=== PATIENT | female | born 1955 | race Caucasian/White ===

== ENCOUNTER 2021-05-12 07:15 | Outpatient (CLI) | payer MEDICARE ==
[2021-05-12 15:17] LABS: BUN - BLOOD UREA NITROGEN 11 mg/dL (6-20); CALCIUM 9.2 mg/dL (8.5-10.3); CARBON DIOXIDE - CO2 26 mmol/L (21-32); CHLORIDE 98 mmol/L (101-111); CHOLESTEROL 209 mg/dL; CREATININE 0.5 mg/dL (0.4-1.0); GFR - MDRD 123 (>89); GLUCOSE 99 mg/dL (70-100); HDL CHOLESTEROL 103 mg/dL; LDL CHOLESTEROL,CALCULATED 89 mg/dL; LDL/HDL RATIO 0.9 (<4.4); SODIUM 134 mmol/L (135-145); TRIGLYCERIDES 85 mg/dL; VLDL CHOLESTEROL 17 mg/dL
== END 2021-05-12 07:16 | disposition home or self-care (01) ==
LOC: LAB.S 07:15
PROVIDERS: ATTEND Internal Medicine
DX: N95.1 Menopausal and female climacteric states (principal); E78.5 Hyperlipidemia, unspecified; I10 Essential (primary) hypertension; M81.0 Age-related osteoporosis without current pathological fracture; M25.511 Pain in right shoulder
CPT/HCPCS: 36415; 80048; 80061; 83721

== ENCOUNTER 2021-07-12 09:47 | Outpatient (CLI) | payer MEDICARE ==
--- NOTE | 2021-07-19 08:19 | Mammography Report ---
BILATERAL DIGITAL SCREENING MAMMOGRAM 3D/2D: 07/12/2021 CLINICAL: Routine screening. No prior exams were available for comparison. The tissue of both breasts is heterogeneously dense. T his may lower the sensitivity of mammography. No significant masses, calcifications, or other findings are seen in either breast. IMPRESSION: NEGATIVE There is no mammographic evidence of malignancy. A 1 year screening mammogram is recommended. This exam was interpreted at Station ID: [id number]. NOTE: For mammograms, a report in lay terms will be sent to the patient. Approximately 15% of breast malignancies will not be visualized mammographically. In the management of a palpable breast mass, a negative mammogram must not discourage biopsy of a clinically suspicious lesion. Electronically Signed By: David Bolton M.D. [email or web address]/[email or web address]:07/18/2021 12:11:41 ACR BI-RADS Category 1: Negative 3341F PARENCHYMAL PATTERN: (D) - The breast(s) demonstrate(s) heterogeneously dense fibroglandular paryony ma. BI-RADS CATEGORY: (1) - 1 RECOMMENDATION: (ANNUAL) - Recommend routine annual screening mammography. [id number] 1 year screening LATERALITY: (B)
== END 2021-07-12 09:48 | disposition home or self-care (01) ==
LOC: DI.S 09:47
PROVIDERS: ATTEND Internal Medicine
DX: Z12.31 Encounter for screening mammogram for malignant neoplasm of breast (principal)

== ENCOUNTER 2021-10-11 09:30 | Outpatient (CLI) | payer MEDICARE | END 2021-10-11 23:59 | disposition home or self-care (01) | LOC: LAB.S 09:30 | PROVIDERS: ATTEND Nurse Practitioner | DX: L03.019 Cellulitis of unspecified finger (principal) | CPT/HCPCS: 87070; 87181; 87205 ==

== ENCOUNTER 2021-10-31 08:00 | Outpatient (CLI) | payer MEDICARE | END 2021-10-31 23:59 | LOC: LAB.S 08:00 | PROVIDERS: ATTEND Physician Assistant | DX: Z20.818 Contact with and (suspected) exposure to other bacterial communicable diseases (principal); Z20.822 Contact with and (suspected) exposure to COVID-19 | CPT/HCPCS: 87070; U0004 ==

== ENCOUNTER 2022-07-22 08:00 | Outpatient (CLI) | payer MEDICARE ==
--- NOTE | 2022-07-22 10:23 | XRAY Report ---
PROCEDURE: Toe(s) RT INDICATIONS: RIGHT TOE INJURY/SPRAIN TECHNIQUE: 3 views of the right toe(s) acquired. COMPARISON: None FINDINGS: Bones: There is a mildly displaced fracture seen involving the shaft of the proximal phalanx of the second toe. No definite intra-articular involvement is seen. No additional fractures or dislocations. No suspicious bony lesions. Degenerative changes are seen throughout, which are worst involving the first ray. There is an access ory ossicle seen, an os tibiale externum. Soft tissues: No suspicious soft tissue densities. IMPRESSION: Second toe fracture. Reviewed by: Bonifacio Hewitt MD on 07/22/2022 9:[address] [facility] Approved by: Bonifacio Hewitt MD on 07/22/2022 9:[address] [facility] Station ID: [id number]
== END 2022-07-22 08:01 | disposition home or self-care (01) ==
LOC: DI.S 08:00
PROVIDERS: ATTEND Emergency Medicine
DX: S92.511A Displaced fracture of proximal phalanx of right lesser toe(s), initial encounter for closed fracture (principal)

== ENCOUNTER 2023-06-11 08:00 | Outpatient (CLI) | payer MEDICARE ==
--- NOTE | 2023-06-11 13:41 | XRAY Report ---
PROCEDURE: Foot 3 View RT INDICATIONS: SPRAIN OF RIGHT FOOT TECHNIQUE: 3 views of the foot were acquired. COMPARISON: None. FINDINGS: Bones: No fractures or dislocations. No suspicious bony lesions. Mild to moderate first MTP degen erative arthritis. Soft tissues: No suspicious soft tissue calcifications or masses. IMPRESSION: No acute bony abnormality. If pain persists with conservative management, consider repeat radiographs in 10-14 days or cross-sectional imaging. First MTP degenerative arthritis. Reviewed by: Bay Castrejon MD on 06/11/2023 1:40 PM PDT Approved by: Bay Castrejon MD on 06/11/2023 1:40 PM PDT Station ID: [id number]
== END 2023-06-11 23:59 | disposition home or self-care (01) ==
LOC: DI.S 08:00
PROVIDERS: ATTEND Physician Assistant
DX: S93.691A Other sprain of right foot, initial encounter (principal); M19.071 Primary osteoarthritis, right ankle and foot

== ENCOUNTER 2023-07-18 10:43 | Outpatient (CLI) | payer MEDICARE ==
--- NOTE | 2023-07-18 15:11 | DEXA Report ---
PROCEDURE: Dexa Spine and/or Hip INDICATIONS: OSTEOPOROSIS TECHNIQUE: Dual energy x-ray absorptiometry (DXA) was performed on a SADAR 3D System. Regions measur ed are the AP Spine, femoral neck, and if needed forearm. COMPARISON: None FINDINGS: Lumbar Spine: Bone Mineral Density 0.917 g/cm/cm,T score -2.2. Osteopenia Left Femoral Neck: Bone Mineral Density 0.800 g/cm/cm, T score -1.7, osteopenia. Left Hip: Bone Mineral Density 0.850 g/cm/cm,T score -1.2. Osteopenia (T score greater or equal to -1.0: NORMAL) (T score from -1.1 to -2.4: OSTEOPENIA) (T score less than or equal to -2.5 to: OSTEOPOROSIS) Impression: By WHO criteria, this patient has low bone density (osteopenia). Patients with diagnosis of osteoporosis or osteopenia should have regular bone mineral density assess ment. For those eligible for Medicare, routine testing is allowed once every 2 years. Testing frequ ency can be increased for patients who have rapidly progressing disease or for those who are receivin g medical therapy to restore bone mass. Reviewed by: Usha Lugo MD on 07/18/2023 3:09 PM PST Approved by: Usha Lugo MD on 07/18/2023 3:09 PM PST Station ID: [id number]
== END 2023-07-18 10:44 | disposition home or self-care (01) ==
LOC: DI 10:43
PROVIDERS: ATTEND Family Medicine
DX: M85.89 Other specified disorders of bone density and structure, multiple sites (principal)

== ENCOUNTER 2023-07-18 10:45 | Outpatient (CLI) | payer MEDICARE ==
--- NOTE | 2023-07-19 10:58 | Mammography Report ---
BILATERAL DIGITAL SCREENING MAMMOGRAM 3D/2D: 07/18/2023 CLINICAL: Routine screening. Comparison is made to exams dated: 07/12/2021 mammogram - [facility], 08/04/2019 m ammogram, 07/31/2018 mammogram, 01/03/2018 mammogram, 07/05/2017 mammogram, and 06/18/2017 mammogram - [facility]. Both breasts are heterogeneously dense, which may obscure small masses (category c / 51-75% glandular tissue). No significant masses, calcifications, or other findings are seen in either breast. IMPRESSION: NEGATIVE There is no mammographic evidence of malignancy. A 1 year screening mammogram is recommended. Based on the Tyrer Cuzick model (a risk assessment model) the patients lifetime risk is 8.4% and her 10 year risk is 5.3%. According to the ACR, ACS, and NCCN guidelines, an annual breast MRI exam precious g with mammogram is recommended if the patients lifetime risk is 20% or greater. This exam was interpreted at Station ID: [id number]. NOTE: For mammograms, a report in lay terms will be sent to the patient. Approximately 15% of breast malignancies will not be visualized mammographically. In the management of a palpable breast mass, a negative mammogram must not discourage biopsy of a clinically suspicious lesion. Electronically Signed By: Shalonda Paredes M.D., PH.D eb/cesarrad:07/18/2023 17:25:22 letter sent: No_Letter ACR BI-RADS Category 1: Negative 3341F PARENCHYMAL PATTERN: (D) - The breast(s) demonstrate(s) heterogeneously dense fibroglandular cody olvera. BI-RADS CATEGORY: (1) - 1 Mammogram [id number] 1 year screening LATERALITY: (B)
== END 2023-07-18 10:46 | disposition home or self-care (01) ==
LOC: DI 10:45
PROVIDERS: ATTEND Family Medicine
DX: Z12.31 Encounter for screening mammogram for malignant neoplasm of breast (principal); R92.333 Mammographic heterogeneous density, bilateral breasts

== ENCOUNTER 2023-12-22 11:59 | Emergency (ER) | payer MEDICARE ==
[2023-12-22 12:20] VITALS: BP 157/83; O2SAT 96
--- NOTE | 2023-12-22 12:43 | ED Physician Documentation ---
PD HPI HEENT - Stated complaint Stated Complaint: TOOTH PX/SWELLING, CID - Chief complaint Chief Complaint: Heent - History obtained from History obtained from: Patient, Family - History of Present Illness Timing - onset: How many days ago (3) Timing - duration: Days (3) Timing - details: Gradual onset, Still present in ED Location: Tooth Improves: Medication Associated symptoms: Congestion, Headache Similar symptoms before: Diagnosis (dental abscess) Recently seen: Surgery - Additional information Additional information: Lisa Martínez has had a recent dental infection and she has been on some amoxicillin which appeared to help she has had a molar removed and a bone graft done and she has been placed back onto amoxicillin. She is had some improvement discontinue the use of the amoxicillin and she has been back on the amoxicillin for several days without improvement in her pain. She is having some pain in her shoulder as well and has not been sleeping well her feels that she is a bit confused. Review of Systems Constitutional: reports: Sweats. denies: Fever Eyes: denies: Decreased vision Ears: denies: Ear pain Nose: reports: Congestion Throat: reports: Dental pain / toothache Cardiac: denies: Chest pain / pressure, Palpitations Respiratory: denies: Dyspnea, Cough GI: denies: Nausea, Vomiting, Constipation, Diarrhea PD PAST MEDICAL HISTORY - Past Medical History Past Medical History: No Cardiovascular: Hypertension, High cholesterol - Present Medications Home Medications: Ambulatory Orders Medication Instructions Recorded Confirmed Clindamycin [Cleocin] 300 mg PO Q6H 7 Days #28 cap 12/22/23 Ondansetron Odt [Zofran] 4 mg TL Q6H PRN #10 tablet 12/22/23 traMADol [Ultram] 50 - 100 mg PO Q6H PRN #20 tablet 12/22/23 - Allergies Allergies/Adverse Reactions: Allergies Allergy/AdvReac Type Severity Reaction Status Date / Time No Known Drug Allergies Allergy Verified 12/22/23 12:10 - Social History Does the pt smoke?: No Smoking Status: Never smoker Does the pt drink ETOH?: No Does the pt have substance abuse?: No - Immunizations Immunizations are current?: Yes PD ED PE NORMAL - Vitals Vital signs reviewed: Yes (Hypertensive) - General General: Alert and oriented X 3, No acute distress, Well developed/nourished - HEENT HEENT: Atraumatic, PERRL, EOMI, Other (There is a molar on the right lower that is missing and the overlying tissue is tender it appears well-healed. There is no other specific tenderness to the gingival or buccal mucosa on the upper and lower bilaterally. The patient is complaining of pain in those areas.) - Neck Neck: Supple, no meningeal sign, No bony TTP - Cardiac Cardiac: RRR, No murmur - Respiratory Respiratory: No respiratory distress, Clear bilaterally - Derm Derm: Normal color, Warm and dry, No rash - Extremities Extremities: No deformity, No edema - Neuro Neuro: Alert and oriented X 3, environmental protection geologist 2-12 intact, No motor deficit, No sensory deficit, Normal speech Eye Opening: Spontaneous Motor: Obeys Commands Verbal: Oriented GCS Score: 15 - Psych Psych: Normal mood, Normal affect Results - Vitals Vitals: Vital Signs - 24 hr 12/22/23 12:10 Temperature 36.8 C Heart Rate 88 Respiratory 16 Rate Blood Pressure 157/83 H O2 Saturation 96 Oxygen O2 Source Room air PD Medical Decision Making - ED course Complexity details: considered differential, d/w patient, d/w family ED course: 68-year-old female 10 days s/p tooth extraction has persistence of pain has not been sleeping. She and her are hoping to switch antibiotic which seems reasonable. I also offered additional pain management and the patient indicates to me that she has been taking Naprosyn and ibuprofen without relief. I encouraged the patient to discontinue the use of the additional ibuprofen and to instead use acetaminophen. I having her urged her to use the tramadol as needed for pain not relieved by addition of Tylenol. She has had prior problems with vomiting associated with narcotic pain reliever. She has had some nausea and today we are prescribing both Zofran, clindamycin and tramadol. Departure - Departure Disposition: 01 Home, Self Care Clinical Impression: Pain, dental Condition: Stable Instructions: ED Tooth Pain Follow-Up: RASHMI BENAVIDEZ MD [Physician No Access] - Prescriptions: Clindamycin [Cleocin] 300 mg PO Q6H 7 Days #28 cap traMADol [Ultram] 50 - 100 mg PO Q6H PRN #20 tablet PRN Reason: Pain Ondansetron Odt [Zofran] 4 mg TL Q6H PRN #10 tablet PRN Reason: Nausea / Vomiting Comments: Lisa, today it looks like you have significant dental pain after a dental procedure and we are going to switch your antibiotic from amoxicillin to clindamycin. I will also provide some medication for nausea. For pain my suggestion is to take the Naprosyn as you have been and avoid any additional anti-inflammatory like Advil. Addition of acetaminophen to your pain regimen will be helpful. In addition I have E scribed some tramadol to [facility] [place]. Our expectations with treatment are improvement in your symptoms day by day. If you are not improved or you are worse by tomorrow a repeat visit is indicated. Forms: PCP List Discharge Date/Time: 12/22/23 12:51
== END 2023-12-22 12:51 | disposition home or self-care (01) ==
LOC: ED 11:59
DX: K08.89 Other specified disorders of teeth and supporting structures (principal); R11.0 Nausea
CPT/HCPCS: 99283

== ENCOUNTER 2023-12-22 15:47 | Outpatient (CLI) | payer MEDICARE | END 2023-12-22 23:59 | disposition critical access hospital (66) | LOC: EMS 15:47 | DX: R47.89 Other speech disturbances (principal); R53.1 Weakness; R53.81 Other malaise | CPT/HCPCS: A0425; A0429 ==

== ENCOUNTER 2023-12-22 16:24 | Emergency (ER) | payer MEDICARE ==
--- NOTE | 2023-12-22 16:50 | ED Physician Documentation ---
PD HPI FOCAL NEURO - Stated complaint Stated Complaint: SPEECH ISSUES - Chief complaint Chief Complaint: Neuro - History obtained from History obtained from: Patient, EMS - Additional information Additional information: She has a history of hypertension and presents for evaluation of strokelike symptoms. Time of onset is unclear. The says he noted it potentially sometime overnight last night. It was really more notable this morning at 9 AM. She has some word finding difficulties and difficulties finishing her sentence. There is a's headache associated with it. Of note she also saw my partner earlier in the day for a dental infection. I queried if the new symptomatology might be due to related to the tramadol but they have not taken any yet. PD PAST MEDICAL HISTORY - Past Medical History Cardiovascular: Hypertension, High cholesterol - Past Surgical History Past Surgical History: Yes Ortho: Shoulder arthroplasty, Arthroscopic surgery - Present Medications Home Medications: Ambulatory Orders Medication Instructions Recorded Confirmed Alendronate [Fosamax] 70 mg PO OAW 12/22/23 12/22/23 Clindamycin [Cleocin] 300 mg PO Q6H 7 Days #28 cap 12/22/23 12/22/23 Gabapentin [Neurontin] 1 cap PO TID 12/22/23 12/22/23 Lisinopril [Zestril] 10 mg PO DAILY 12/22/23 12/22/23 Metoclopramide [Reglan] 10 mg PO Q6H PRN #20 tablet 12/22/23 Ondansetron Odt [Zofran] 4 mg TL Q6H PRN #10 tablet 12/22/23 12/22/23 Simvastatin [Zocor] 40 mg PO QPM 12/22/23 12/22/23 Sodium Chloride [Salt Tab] 1 gm PO DAILY #7 tablet 12/22/23 traMADol [Ultram] 50 - 100 mg PO Q6H PRN #20 tablet 12/22/23 12/22/23 - Allergies Allergies/Adverse Reactions: Allergies Allergy/AdvReac Type Severity Reaction Status Date / Time No Known Drug Allergies Allergy Verified 12/22/23 12:10 - Social History Does the pt smoke?: No Smoking Status: Never smoker Does the pt drink ETOH?: No Does the pt have substance abuse?: No - Immunizations Immunizations are current?: Yes PD ED PE NORMAL - Vitals Vital signs reviewed: Yes - General General: Alert and oriented X 3, No acute distress - HEENT HEENT: PERRL, EOMI - Neck Neck: Supple, no meningeal sign, No bony TTP - Cardiac Cardiac: RRR, No murmur - Respiratory Respiratory: No respiratory distress, Clear bilaterally - Abdomen Abdomen: Normal bowel sounds, Soft, Non tender - Back Back: No CVA TTP, No spinal TTP - Derm Derm: Normal color, Warm and dry - Neuro Neuro: Alert and oriented X 3, Normal speech, Other (Significant tremor in the upper extremities, right greater than left. Patient says this is fairly acute having only been there for a few weeks. It is not acute today.) Eye Opening: Spontaneous Motor: Obeys Commands Verbal: Oriented GCS Score: 15 NIHSS - Time Time: 16:45 - Level of Consciousness Level of consciousness: (0) Alert, Keenly responsive LOC Questions: (0) Answers both Q's correct LOC Commands: (0) Performs both correctly - Gaze Best Gaze: (0) Normal - Visual Visual: (0) No loss - Facial Palsy Facial Palsy: (0) Normal, symmetrical movement - Motor Arms (both separate) Motor Arm (right): (0) No drift Motor Arm (left): (0) No drift - Motor Legs (both separate) Motor Leg (right): (0) No drift Motor Leg (left): (0) No drift - Limb Ataxia Limb Ataxia: (0) Absent - Sensory Sensory: (0) Normal - Best Language Best Language: (1) [id number] (She is some very mild word finding difficulties and difficulties finishing her sentences.) - Dysarthria Dysarthria: (0) Normal - Extinction and Inattention (formally neg Extinction and inattention: (0) No abnormality - Total Score/Results Total Score/Result: 1 Results - Vitals Vitals: Vital Signs - 24 hr 12/22/23 12/22/23 12/22/23 16:36 18:47 19:30 Temperature 37.2 C Heart Rate 84 87 94 Respiratory 18 20 16 Rate Blood Pressure 149/86 H 134/82 H 137/68 H O2 Saturation 98 97 95 12/22/23 12/22/23 20:30 20:35 Temperature Heart Rate 88 88 Respiratory 16 18 Rate Blood Pressure 147/79 H O2 Saturation 97 95 Oxygen O2 Source Room air - EKG (time done) 1722 EKG releavant findings:: EKG personally interpreted by author of this note. Relevant findings are: Rate: Rate (enter#) (91) Rhythm: NSR [place]: Normal Intervals: Normal AR QRS: Normal Ischemia: Normal ST segments - Labs Labs: Laboratory Tests 12/22/23 12/22/23 12/22/23 17:18 17:18 17:18 WBC 6.7 RBC 3.65 L Hgb 11.8 L Hct 36.3 L MCV 99.5 H MCH 32.3 H MCHC 32.5 RDW 13.0 Plt Count 297 MPV 9.0 Neut # (Auto) 5.6 Lymph # (Auto) 0.5 L [place] # (Auto) 0.4 Eos # (Auto) 0.0 Baso # (Auto) 0.0 Absolute Nucleated RBC 0.00 Nucleated RBC % 0.0 PT 12.3 INR 1.1 Sodium 127 L Potassium 4.2 Chloride 91 L Carbon Dioxide 28 Anion Gap 8.0 BUN 13 Creatinine 0.5 L Estimated GFR (MDRD) 122 Glucose 117 H Calcium 9.5 Total Bilirubin 0.6 AST 21 ALT 19 Alkaline Phosphatase 58 Total Protein 7.0 Albumin 4.3 Globulin 2.7 Albumin/Globulin Ratio 1.6 Lipase 12 - Rads (name of study) CT Head Relevant Findings:: Final report received, Discussed with rads, EMP independent interpretation of test CT angiography of the head without acute disease. She does have degenerative changes in the neck. Relevant Findings:: Final report received, EMP independent interpretation of test MRI of the brain demonstrates no evidence of stroke Relevant Findings:: Final report received, EMP independent interpretation of test PD Medical Decision Making - ED course ED course: She presents with mild confusion and word finding difficulties. Nonfocal exam although she is tremulous., she is not a tPA candidate. At best her time of onset was 9 AM this morning and it may have even been going on overnight. Also her symptoms are fairly minor. Workup demonstrates no evidence of acute disease on CT of the head, CT angiography of the head and neck, nor brain MRI. Her labs are notable for mild anemia on CBC, no prior values available. She also is fairly hyponatremic. A few years ago her sodium was 134. She has not been eating well due to her dental pain so assume, since she is not on a new diuretic or any other meds that would cause hyponatremia, that the hyponatremia is probably due to increased fluid intake in the setting of decreased solid oral intake. She was administered a 50 mL bolus of hypertonic saline. Subsequent to that her word finding difficulties significantly improved. She was offered admission to the hospital but was feeling fairly uncomfortable here, she has chronic shoulder pain and has a routine at home for positioning that she did not think she would be able to do here. Her supportive will keep an eye on her. We discussed free water restriction and increased salt ingestion. Departure - Departure Disposition: Home, Self Care Clinical Impression: Stroke-like symptoms, Hyponatremia Condition: Good Record reviewed to determine appropriate education?: Yes Instructions: ED Hyponatremia Prescriptions: Metoclopramide [Reglan] 10 mg PO Q6H PRN #20 tablet PRN Reason: nausea or headache Sodium Chloride [Salt Tab] 1 gm PO DAILY #7 tablet Comments: I sent your prescriptions electronically to the [facility] in [place]. You were seen today for word finding difficulties and initially we were concerned that she might of had a stroke. Both CT and MRI of your brain were negative for same. And what we did find was that your sodium level was modestly low at 127. The brain does require a certain amount of sodium to function normally and I suspect that this is what was causing her neurologic symptoms which did improve after the administration of what is called hypertonic saline. I am prescribing some salt tablets and a new nausea medicine that she can take along with the other nausea medicine and the antibiotics. Follow-up with your dentist as scheduled. Also follow-up with your primary care physician. I would not be surprised if they want to repeat a sodium level sometime this week. Forms: PCP List Discharge Date/Time: 12/22/23 20:36
[2023-12-22] MEDS ORDERED: iohexoL-300 100 ML VIAL ONE (16:55)
[2023-12-22 17:23] LABS: BASOPHILS % (AUTO) 0.6 %; EOSINOPHILS % (AUTO) 0.3 %; HCT - HEMATOCRIT 36.3 % (37.0-47.0); HGB - HEMOGLOBIN 11.8 g/dL (12.0-16.0); LYMPHOCYTES # (AUTO) 0.5 10^3/uL (1.5-3.5); LYMPHOCYTES % (AUTO) 7.8 %; MEAN CORPUSCULAR HEMOGLOBIN 32.3 pg (27.0-31.0); MEAN CORPUSCULAR HGB CONC 32.5 g/dL (32.0-36.0); MEAN CORPUSCULAR VOLUME 99.5 fL (81.0-99.0); MONOCYTES # (AUTO) 0.4 10^3/uL (0.0-1.0); MONOCYTES % (AUTO) 6.5 %; NEUTROPHILS # (AUTO) 5.6 10^3/uL (1.5-6.6); NEUTROPHILS % (AUTO) 84.3 %; PLT - PLATELET COUNT 297 10^3/uL (130-450); RED BLOOD COUNT 3.65 10^6/uL (4.20-5.40); WHITE BLOOD COUNT 6.7 x10^3/uL (4.8-10.8)
--- NOTE | 2023-12-22 17:26 | CT Report ---
PROCEDURE: Head W/O Stroke Protocol INDICATIONS: Neuro deficit, acute, stroke suspected TECHNIQUE: Noncontrast 4.5 mm thick angled axial sections acquired from the foramen magnum to the vertex, with c oronal reformats. For radiation dose reduction, the following was used: automated exposure control, adjustment of mA and/or kV according to patient size. COMPARISON: None. FINDINGS: Image quality: Motion artifact is noted. There is streak artifact seen through the skull base. CSF spaces: Basal cisterns are patent. No extra-axial fluid collections. Ventricles are normal in size and shape. Brain: No midline shift. No intracranial masses or hemorrhage. Christensen-white matter interface is norm al. Skull and face: Calvarium and visualized facial bones are intact, without suspicious lesions. Sinuses: Visualized sinuses and mastoids are clear. IMPRESSION: No intracranial hemorrhage is seen. No significant intracranial abnormality is seen. Note: Case discussed by telephone with Dr. Linn at 5:24 PM [place] time on 12/22/2023. This study fulfills neurological imaging criteria for inclusion or exclusion of acute stroke therapie s based on available published neurological imaging guidelines. Reviewed by: Bonifacio Hewitt MD on 12/22/2023 4:25 PM [facility] Approved by: Bonifacio Hewitt MD on 12/22/2023 4:25 PM [facility] Station ID: [id number]
[2023-12-22 17:36] LABS: INR 1.1 (0.8-1.2); PT - PROTHROMBIN TIME 12.3 secs (9.9-12.6)
[2023-12-22 17:38] LABS: ALBUMIN 4.3 g/dL (3.2-5.5); ALBUMIN/GLOBULIN RATIO 1.6 (1.0-2.2); BILIRUBIN,TOTAL 0.6 mg/dL (0.2-1.0); CALCIUM 9.5 mg/dL (8.5-10.3); CREATININE 0.5 mg/dL (0.6-1.3); POTASSIUM 4.2 mmol/L (3.5-4.5)
--- NOTE | 2023-12-22 17:43 | CT Report ---
PROCEDURE: Angio Head/Neck INDICATIONS: CVA sx TECHNIQUE: After the administration of intravenous contrast, 1 mm thick sections acquired from the aortic arch t hrough the [place] of [place]. 3-dimensional dukyhrs-qplhnhpbd-uhohtgjuxs (MIP) and/or volume renderin g reformats were acquired of the central intracranial vasculature and neck separately. For radiation dose reduction, the following was used: automated exposure control, adjustment of mA and/or kV acco rding to patient size. CONTRAST: 80ml omni 300 COMPARISON: Correlation is made with the accompanying imaging. FINDINGS: Image quality: There is streak artifact seen through the level of the shoulders. Limited by bolus ti catracho, with venous contamination. HEAD CT: CSF Spaces: Basal cisterns are patent. No extra-axial fluid collections. Ventricles are normal in size and shape. Brain: No significant abnormality is seen for scanning technique. Skull and face: Calvarium and visualized facial bones appear intact, without suspicious lesions. Sinuses: Visualized sinuses and mastoids are clear. HEAD CT ANGIOGRAPHY: Anterior circulation: Intracranial internal carotid arteries are normal in size and flow. The flow within the paired anterior cerebral arteries is normal and symmetric. The flow within the middle cer ebral arteries is normal and symmetric. The anterior communicating artery is seen. No aneurysms are seen. Posterior circulation: Visualized portions of the vertebral arteries demonstrate normal caliber, and join to form a normal appearing basilar artery. Flow within the posterior cerebral arteries is norm al and symmetric. No aneurysms are seen. NECK CT ANGIOGRAPHY: Carotid system: The great vessels demonstrate a conventional anatomy as they arise from the aortic a rch. The origins of the common carotid arteries appear patent. The common carotid arteries demonstr ate normal caliber and courses. The bifurcation regions are both widely patent. The internal caroti d arteries demonstrate normal calibers and courses. Posterior circulation: The origins of the vertebral arteries both appear widely patent. The more valentine perior extracranial portions of both vertebral arteries also demonstrate normal courses and calibers. The right vertebral artery is dominant to the left. Soft tissues: Visualized neck soft tissues d emonstrate no suspicious abnormalities. Bones: No suspicious bony lesions. Visualized cervical spine appears normally aligned. At least mod erate cervical spine degenerative change is seen. Right shoulder arthroplasty hardware is seen, with associated streak artifact. IMPRESSION: No significant intracranial arterial abnormality is seen. No significant abnormality is seen within the arteries of the neck. Additional findings: At least moderate cervical spine degenerative change Right shoulder arthroplasty The estimate of stenosis included in the report of the imaging study was calculated using the NASCET method Reviewed by: Bonifacio Hewitt MD on 12/22/2023 4:42 PM [facility] Approved by: Bonifacio Hewitt MD on 12/22/2023 4:42 PM [facility] Station ID: [id number]
[2023-12-22] MEDS: iohexoL-300 100 ML VIAL IVP ONE (18:32)
[2023-12-22] MEDS: SODIUM CHLORIDE 3% HYPERTONIC 50 ML IV SCH (18:41)
--- NOTE | 2023-12-22 18:41 | MRI Report ---
PROCEDURE: Brain WO INDICATIONS: CVA sx TECHNIQUE: Noncontrast axial T1 spin echo, axial T2 fast spin echo, sagittal and axial FLAIR, coronal T2 fast sp in echo, axial gradient echo, axial diffusion and ADC through the brain. COMPARISON: CT head, 12/22/2023. Anterior head and neck, 12/22/2023. FINDINGS: Image quality: Excellent. CSF Spaces: Basal cisterns are patent. No extra-axial fluid collections. Ventricles are normal in size and shape. Brain: No intracranial masses or hemorrhage. Christensen/white matter interface is normal. Brainstem appe ars normal. Diffusion-weighted images demonstrate no acute ischemic insult. No chronic ischemic ins ults. Normal intravascular flow voids are present. Skull and face: Calvarium has normal marrow signal. Orbits appear normal. Sinuses: There is a mucous retention cyst or polyp in the left maxillary sinus. Mild ethmoidal and ma xillary sinus mucosal thickening bilaterally. The mastoids are clear. IMPRESSION: 1. No acute intracranial abnormality. 2. Mild paranasal sinus disease. Reviewed by: Eva Rivers MD on 12/22/2023 6:40 PM PDT Approved by: Eva Rivers MD on 12/22/2023 6:40 PM PDT Station ID: [id number]
[2023-12-22] MEDS: ONDANSETRON 4 MG/2 ML VIAL IVP STA (19:08)
[2023-12-22 19:50] VITALS: O2SAT 95
[2023-12-22] MEDS: METOCLOPRAMIDE 10 MG TABLET PO STA (20:24)
[2023-12-22] MEDS: SODIUM CHLORIDE 1 GM TABLET PO STA (20:24)
[2023-12-22 20:38] VITALS: BP 147/79
== END 2023-12-22 20:36 | disposition home or self-care (01) ==
LOC: EDUNIT# → ED 16:24
DX: R41.0 Disorientation, unspecified (principal); R47.02 Dysphasia; E87.1 Hypo-osmolality and hyponatremia; R11.0 Nausea; R25.1 Tremor, unspecified; K04.7 Periapical abscess without sinus; K08.89 Other specified disorders of teeth and supporting structures
CPT/HCPCS: 36415; 70450; 70496; 70498; 70551; 80053; 83690; 85025; 85610; 93005; 96374; 99284; A9270; Q9967

== ENCOUNTER 2023-12-23 22:13 | Inpatient (IN) | payer MEDICARE ==
[2023-12-23 23:05] LABS: BASOPHILS % (AUTO) 0.6 %; EOSINOPHILS # (AUTO) 0.1 10^3/uL (0.0-0.7); EOSINOPHILS % (AUTO) 1.1 %; HCT - HEMATOCRIT 38.7 % (37.0-47.0); HGB - HEMOGLOBIN 12.5 g/dL (12.0-16.0); INR 1.1 (0.8-1.2); LYMPHOCYTES % (AUTO) 15.7 %; MEAN CORPUSCULAR HEMOGLOBIN 32.6 pg (27.0-31.0); MEAN CORPUSCULAR HGB CONC 32.3 g/dL (32.0-36.0); MEAN PLATELET VOLUME 8.7 fL (7.9-10.8); MONOCYTES # (AUTO) 0.7 10^3/uL (0.0-1.0); MONOCYTES % (AUTO) 11.1 %; NEUTROPHILS # (AUTO) 4.5 10^3/uL (1.5-6.6); NEUTROPHILS % (AUTO) 71.2 %; PLT - PLATELET COUNT 315 10^3/uL (130-450); PT - PROTHROMBIN TIME 11.9 secs (9.9-12.6); RED BLOOD COUNT 3.83 10^6/uL (4.20-5.40); RED CELL DISTRIBUTION WIDTH 12.9 % (12.0-15.0); WHITE BLOOD COUNT 6.3 x10^3/uL (4.8-10.8)
[2023-12-23 23:06] LABS: VBG BASE EXCESS -0.2 mmol/L (-2 - +2); VBG HCO3 26.2 mmol/L (23-28); VBG OXYGEN SATURATION 54.3 % (60-80); VBG PCO2 49.3 mmHg (41-51); VBG PH 7.343 (7.31-7.41); VBG PO2 28.7 mmHg (25-47); VBG TOTAL CO2 27.7 mmol/L (24-29)
[2023-12-23 23:10] LABS: BILIRUBIN,URINE NEGATIVE (NEGATIVE); GLUCOSE, URINE (UA) NEGATIVE (NEGATIVE); KETONES,URINE (UA) 40 mg/dL (NEGATIVE); LEUKOCYTE ESTERASE, URINE NEGATIVE (NEGATIVE); NITRITE,URINE NEGATIVE (NEGATIVE); OCCULT BLOOD,URINE NEGATIVE (NEGATIVE); PROTEIN,URINE TRACE mg/dL (NEGATIVE); UROBILINOGEN,URINE 1 (NORMAL) E.U./dL (NORMAL)
[2023-12-23 23:18] LABS: ACETAMINOPHEN 0.1 ug/mL; ALBUMIN 4.6 g/dL (3.2-5.5); ALBUMIN/GLOBULIN RATIO 1.4 (1.0-2.2); ALKALINE PHOSPHATASE 67 IU/L (42-121); ALT ALANINE AMINOTRANSFERASE 18 IU/L (10-60); AST ASPARTATE AMINOTRANSFERASE 17 IU/L (10-42); BILIRUBIN,TOTAL 0.7 mg/dL (0.2-1.0); BUN - BLOOD UREA NITROGEN 19 mg/dL (6-20); CARBON DIOXIDE - CO2 28 mmol/L (21-32); CHLORIDE 92 mmol/L (101-111); CK- CREATINE KINASE 21 IU/L (30-223); CREATININE 0.6 mg/dL (0.6-1.3); GFR - MDRD 99 (>89); GLUCOSE 112 mg/dL (74-104); LIPASE 20 U/L (11-82); MAGNESIUM 1.9 mg/dL (1.7-2.3); POTASSIUM 3.8 mmol/L (3.5-4.5); SODIUM 129 mmol/L (135-145); TOTAL PROTEIN 7.9 g/dL (6.4-8.9)
[2023-12-23 23:18] LABS: CLARITY,URINE CLEAR (CLEAR)
[2023-12-23 23:22] LABS: AMPHETAMINE SCREEN,URINE NEGATIVE (NEGATIVE); BARBITURATE SCREEN,UR NEGATIVE (NEGATIVE); BENZODIAZEPINES SCREEN, URINE NEGATIVE (NEGATIVE); BUPRENORPHINE SCREEN, URINE NEGATIVE (NEGATIVE); COCAINE SCREEN URINE NEGATIVE (NEGATIVE); METHADONE SCREEN, URINE NEGATIVE (NEGATIVE); METHAMPHETAMINES SCREEN, URINE NEGATIVE (NEGATIVE); OPIATE SCREEN, URINE NEGATIVE (NEGATIVE); OXYCODONE SCREEN, URINE NEGATIVE (NEGATIVE); THC CANNABINOID SCREEN, URINE POSITIVE (NEGATIVE); TRICYCLIC ANTIDEPRESSANT,URINE NEGATIVE (NEGATIVE)
[2023-12-23 23:32] LABS: SALICYLATE < 1.5 mg/dL
[2023-12-23] MEDS: SODIUM CHLORIDE 0.9% 1,000 ML IV STA (23:41)
--- NOTE | 2023-12-23 23:49 | XRAY Report ---
PROCEDURE: Chest 1V INDICATIONS: chest pain TECHNIQUE: One view of the chest was acquired. COMPARISON: None. FINDINGS: Surgical changes and devices: Right shoulder partially seen arthroplasty. Lungs and pleura: Suspected scattered scarring/atelectasis. No dense airspace disease or pleural eff usion. Mediastinum: Heart size is within normal limits. Bones and chest wall: Degenerative changes. IMPRESSION: Limited single view radiograph . No acute abnormality Reviewed by: Mega Mcbride MD on 12/23/2023 11:48 PM PDT Approved by: Mega Mcbride MD on 12/23/2023 11:48 PM PDT Station ID: [id number]
--- NOTE | 2023-12-23 23:52 | CT Report ---
PROCEDURE: Head WO INDICATIONS: AMS TECHNIQUE: Noncontrast 4.5 mm thick angled axial sections acquired from the foramen magnum to the vertex. For r adiation dose reduction, the following was used: automated exposure control, adjustment of mA and/or kV according to patient size. COMPARISON: 12/22/2023 FINDINGS: Image quality: Diagnostic CSF spaces: Basal cisterns are patent. Lateral ventricles are symmetric. Volume: Vascular calcifications. Periventricular white matter disease is commonly seen with chronic m icroangiopathy. Volume loss is present. These findings are mild. Brain: No intracranial hemorrhage. Christensen-white differentiation is grossly maintained. Craniofacial structures: No significant paranasal sinus opacification. IMPRESSION: No acute intracranial abnormality. If there is high concern for parenchymal pathology, consider furth er evaluation with MRI. Reviewed by: Mega Mcbride MD on 12/23/2023 11:50 PM PDT Approved by: Mega Mcbride MD on 12/23/2023 11:50 PM PDT Station ID: [id number]
--- NOTE | 2023-12-24 00:04 | ED Physician Documentation ---
History of Present Illness - Stated complaint Stated Complaint: CONFUSION - Chief complaint Chief Complaint: Neuro - Additonal information Additional information: Patient is 68-year-old female presenting to the emergency department with chief complaint of confusion. She is accompanied by her who is present at bedside. They have had a complicated course thus far. Symptoms began approximately 4 days ago shortly after a extraction for a right upper tooth. Family reports that shortly after this she began having some confused speech. Speech was intelligible but did not make sense in the setting in which it was occurring. She would reach for objects such as a beach ball and state I need you to "fill my cup". She also began having some balance issues including weakness in her right upper right lower extremity. They were seen in the emergency department and subsequently referred for outpatient MRI. reports that they were told that the MRI was "negative". Patient was offered hospitalization during her ED evaluation which she declined. Per went home, slept but today began having some increased confused speech and disorientation, again with some apparent hallucination. Does report history of alcohol use, states drinks 4-alcoholic beverages daily and has for greater than 10 years however recently cut back in the last 2-3 days. Review of Systems Unable to obtain: Confused PD PAST MEDICAL HISTORY - Past Medical History Past Medical History: Yes Cardiovascular: Hypertension, High cholesterol - Past Surgical History Past Surgical History: Yes Ortho: Shoulder arthroplasty, Arthroscopic surgery - Present Medications Home Medications: Ambulatory Orders Medication Instructions Recorded Confirmed Alendronate [Fosamax] 70 mg PO OAW 12/22/23 12/23/23 Clindamycin [Cleocin] 300 mg PO Q6H 7 Days #28 cap 12/22/23 12/23/23 Gabapentin [Neurontin] 1 cap PO TID 12/22/23 12/23/23 Lisinopril [Zestril] 10 mg PO DAILY 12/22/23 12/23/23 Metoclopramide [Reglan] 10 mg PO Q6H PRN #20 tablet 12/22/23 12/23/23 Ondansetron Odt [Zofran] 4 mg TL Q6H PRN #10 tablet 12/22/23 12/23/23 Simvastatin [Zocor] 40 mg PO QPM 12/22/23 12/23/23 Sodium Chloride [Salt Tab] 1 gm PO DAILY #7 tablet 12/22/23 12/23/23 traMADol [Ultram] 50 - 100 mg PO Q6H PRN #20 tablet 12/22/23 12/23/23 - Allergies Allergies/Adverse Reactions: Allergies Allergy/AdvReac Type Severity Reaction Status Date / Time No Known Drug Allergies Allergy Verified 12/23/23 22:18 - Social History Does the pt smoke?: No Smoking Status: Never smoker Does the pt drink ETOH?: No Does the pt have substance abuse?: No - Immunizations Immunizations are current?: Yes PD ED PE NORMAL - General General: Alert and oriented X 3, No acute distress - HEENT HEENT: Atraumatic - Neck Neck: Supple, no meningeal sign - Cardiac Cardiac: RRR - Respiratory Respiratory: No respiratory distress - Abdomen Abdomen: Normal bowel sounds - Female Female : Deferred - Rectal Rectal: Deferred - Back Back: No CVA TTP - Derm Derm: Normal color - Neuro Neuro: Alert and oriented X 3, limnologist 2-12 intact, Other (Patient with positive right upper extremity pronator drift. Right lower extremity appears weaker in comparison to left when held against gravity. Patient 0 out of 3 were called items on Mini-Mental state exam.) Results - Vitals Vitals: Vital Signs - 24 hr 12/23/23 12/23/23 12/23/23 22:18 22:26 22:55 Temperature 36.8 C Heart Rate 86 81 75 Respiratory 16 20 23 Rate Blood Pressure 150/90 H 155/87 H 141/78 H O2 Saturation 100 97 94 12/23/23 12/24/23 23:45 00:26 Temperature 36.6 C Heart Rate 87 81 Respiratory 17 20 Rate Blood Pressure 158/93 H 164/95 H O2 Saturation 94 98 Oxygen O2 Source Room air - EKG (time done) 2251 EKG releavant findings:: EKG personally interpreted by author of this note. Relevant findings are: Sinus rhythm with rate 77 bpm. Normal axis. Normal NM, QRS, QTc intervals. No ST segment elevations or T wave inversions. - Labs Labs: Laboratory Tests 12/23/23 12/23/23 12/23/23 22:50 22:50 22:50 WBC RBC Hgb Hct MCV MCH MCHC RDW Plt Count MPV Neut # (Auto) Lymph # (Auto) [place] # (Auto) Eos # (Auto) Baso # (Auto) Absolute Nucleated RBC Nucleated RBC % PT INR VBG pH VBG pCO2 VBG pO2 VBG HCO3 VBG Total CO2 VBG O2 Saturation VBG Base Excess Sodium Potassium Chloride Carbon Dioxide Anion Gap BUN Creatinine Estimated GFR (MDRD) Glucose Lactic Acid Calcium Magnesium Total Bilirubin AST ALT Alkaline Phosphatase Ammonia Total Creatine Kinase Total Protein Albumin Globulin Albumin/Globulin Ratio Lipase Urine Color DARK YELLOW Urine Clarity CLEAR Urine pH 6.0 Ur Specific [place] >=1.030 H Urine Protein TRACE Urine Glucose (UA) NEGATIVE Urine Ketones 40 H Urine Occult Blood NEGATIVE Urine Nitrite NEGATIVE Urine Bilirubin NEGATIVE Urine Urobilinogen 1 (NORMAL) Ur Leukocyte Esterase NEGATIVE Ur Microscopic Review NOT INDICATED Urine Culture Comments NOT INDICATED Urine Sodium 109.5 Nasal Adenovirus (PCR) NOT DETECTED Nasal B. parapertussis DNA (PCR) NOT DETECTED Nasal Coronavir 229E PCR NOT DETECTED Nasal Coronavir HKU1 PCR NOT DETECTED Nasal Coronavir NL63 PCR NOT DETECTED Nasal Coronavir OC43 PCR NOT DETECTED Nasal Enterovir/Rhinovir PCR NOT DETECTED Nasal Influenza B PCR NOT DETECTED Nasal Influenza A PCR NOT DETECTED Nasal Parainfluen 1 PCR NOT DETECTED Nasal Parainfluen 2 PCR NOT DETECTED Nasal Parainfluen 3 PCR NOT DETECTED Nasal Parainfluen 4 PCR NOT DETECTED Nasal RSV (PCR) NOT DETECTED Nasal B.pertussis DNA PCR NOT DETECTED Nasal C.pneumoniae (PCR) NOT DETECTED Bao Human Metapneumo PCR NOT DETECTED Nasal M.pneumoniae (PCR) NOT DETECTED Nasal SARS-CoV-2 (PCR) NOT DETECTED Salicylates Urine Opiates Screen NEGATIVE Ur Buprenorphine Scrn NEGATIVE Ur Oxycodone Screen NEGATIVE Urine Methadone Screen NEGATIVE Acetaminophen Ur Barbiturates Screen NEGATIVE Ur Tricyclics Screen NEGATIVE Ur Phencyclidine Scrn NEGATIVE Ur Amphetamine Screen NEGATIVE U Methamphetamines Scrn NEGATIVE U Benzodiazepines Scrn NEGATIVE Urine Cocaine Screen NEGATIVE U Cannabinoids Screen POSITIVE H Ur Drug Screen Comment CUTOFF CONC BELOW: Ethyl Alcohol 12/23/23 12/23/23 12/23/23 22:53 22:53 22:53 WBC 6.3 RBC 3.83 L Hgb 12.5 Hct 38.7 MCV 101.0 H MCH 32.6 H MCHC 32.3 RDW 12.9 Plt Count 315 MPV 8.7 Neut # (Auto) 4.5 Lymph # (Auto) 1.0 L [place] # (Auto) 0.7 Eos # (Auto) 0.1 Baso # (Auto) 0.0 Absolute Nucleated RBC 0.00 Nucleated RBC % 0.0 PT 11.9 INR 1.1 VBG pH VBG pCO2 VBG pO2 VBG HCO3 VBG Total CO2 VBG O2 Saturation VBG Base Excess Sodium 129 L Potassium 3.8 Chloride 92 L Carbon Dioxide 28 Anion Gap 9.0 BUN 19 Creatinine 0.6 Estimated GFR (MDRD) 99 Glucose 112 H Lactic Acid Calcium 10.0 Magnesium 1.9 Total Bilirubin 0.7 AST 17 ALT 18 Alkaline Phosphatase 67 Ammonia Total Creatine Kinase 21 L Total Protein 7.9 Albumin 4.6 Globulin 3.3 Albumin/Globulin Ratio 1.4 Lipase 20 Urine Color Urine Clarity Urine pH Ur Specific [place] Urine Protein Urine Glucose (UA) Urine Ketones Urine Occult Blood Urine Nitrite Urine Bilirubin Urine Urobilinogen Ur Leukocyte Esterase Ur Microscopic Review Urine Culture Comments Urine Sodium Nasal Adenovirus (PCR) Nasal B. parapertussis DNA (PCR) Nasal Coronavir 229E PCR Nasal Coronavir HKU1 PCR Nasal Coronavir NL63 PCR Nasal Coronavir OC43 PCR Nasal Enterovir/Rhinovir PCR Nasal Influenza B PCR Nasal Influenza A PCR Nasal Parainfluen 1 PCR Nasal Parainfluen 2 PCR Nasal Parainfluen 3 PCR Nasal Parainfluen 4 PCR Nasal RSV (PCR) Nasal B.pertussis DNA PCR Nasal C.pneumoniae (PCR) Bao Human Metapneumo PCR Nasal M.pneumoniae (PCR) Nasal SARS-CoV-2 (PCR) Salicylates < 1.5 Urine Opiates Screen Ur Buprenorphine Scrn Ur Oxycodone Screen Urine Methadone Screen Acetaminophen 0.1 Ur Barbiturates Screen Ur Tricyclics Screen Ur Phencyclidine Scrn Ur Amphetamine Screen U Methamphetamines Scrn U Benzodiazepines Scrn Urine Cocaine Screen U Cannabinoids Screen Ur Drug Screen Comment Ethyl Alcohol 12/23/23 12/23/23 12/24/23 22:53 22:53 00:40 WBC RBC Hgb Hct MCV MCH MCHC RDW Plt Count MPV Neut # (Auto) Lymph # (Auto) [place] # (Auto) Eos # (Auto) Baso # (Auto) Absolute Nucleated RBC Nucleated RBC % PT INR VBG pH 7.343 VBG pCO2 49.3 VBG pO2 28.7 VBG HCO3 26.2 VBG Total CO2 27.7 VBG O2 Saturation 54.3 L VBG Base Excess -0.2 Sodium Potassium Chloride Carbon Dioxide Anion Gap BUN Creatinine Estimated GFR (MDRD) Glucose Lactic Acid 1.7 Calcium Magnesium Total Bilirubin AST ALT Alkaline Phosphatase Ammonia Total Creatine Kinase Total Protein Albumin Globulin Albumin/Globulin Ratio Lipase Urine Color Urine Clarity Urine pH Ur Specific [place] Urine Protein Urine Glucose (UA) Urine Ketones Urine Occult Blood Urine Nitrite Urine Bilirubin Urine Urobilinogen Ur Leukocyte Esterase Ur Microscopic Review Urine Culture Comments Urine Sodium Nasal Adenovirus (PCR) Nasal B. parapertussis DNA (PCR) Nasal Coronavir 229E PCR Nasal Coronavir HKU1 PCR Nasal Coronavir NL63 PCR Nasal Coronavir OC43 PCR Nasal Enterovir/Rhinovir PCR Nasal Influenza B PCR Nasal Influenza A PCR Nasal Parainfluen 1 PCR Nasal Parainfluen 2 PCR Nasal Parainfluen 3 PCR Nasal Parainfluen 4 PCR Nasal RSV (PCR) Nasal B.pertussis DNA PCR Nasal C.pneumoniae (PCR) Bao Human Metapneumo PCR Nasal M.pneumoniae (PCR) Nasal SARS-CoV-2 (PCR) Salicylates Urine Opiates Screen Ur Buprenorphine Scrn Ur Oxycodone Screen Urine Methadone Screen Acetaminophen Ur Barbiturates Screen Ur Tricyclics Screen Ur Phencyclidine Scrn Ur Amphetamine Screen U Methamphetamines Scrn U Benzodiazepines Scrn Urine Cocaine Screen U Cannabinoids Screen Ur Drug Screen Comment Ethyl Alcohol < 10.0 12/24/23 00:40 WBC RBC Hgb Hct MCV MCH MCHC RDW Plt Count MPV Neut # (Auto) Lymph # (Auto) [place] # (Auto) Eos # (Auto) Baso # (Auto) Absolute Nucleated RBC Nucleated RBC % PT INR VBG pH VBG pCO2 VBG pO2 VBG HCO3 VBG Total CO2 VBG O2 Saturation VBG Base Excess Sodium Potassium Chloride Carbon Dioxide Anion Gap BUN Creatinine Estimated GFR (MDRD) Glucose Lactic Acid Calcium Magnesium Total Bilirubin AST ALT Alkaline Phosphatase Ammonia 19.6 Total Creatine Kinase Total Protein Albumin Globulin Albumin/Globulin Ratio Lipase Urine Color Urine Clarity Urine pH Ur Specific [place] Urine Protein Urine Glucose (UA) Urine Ketones Urine Occult Blood Urine Nitrite Urine Bilirubin Urine Urobilinogen Ur Leukocyte Esterase Ur Microscopic Review Urine Culture Comments Urine Sodium Nasal Adenovirus (PCR) Nasal B. parapertussis DNA (PCR) Nasal Coronavir 229E PCR Nasal Coronavir HKU1 PCR Nasal Coronavir NL63 PCR Nasal Coronavir OC43 PCR Nasal Enterovir/Rhinovir PCR Nasal Influenza B PCR Nasal Influenza A PCR Nasal Parainfluen 1 PCR Nasal Parainfluen 2 PCR Nasal Parainfluen 3 PCR Nasal Parainfluen 4 PCR Nasal RSV (PCR) Nasal B.pertussis DNA PCR Nasal C.pneumoniae (PCR) Bao Human Metapneumo PCR Nasal M.pneumoniae (PCR) Nasal SARS-CoV-2 (PCR) Salicylates Urine Opiates Screen Ur Buprenorphine Scrn Ur Oxycodone Screen Urine Methadone Screen Acetaminophen Ur Barbiturates Screen Ur Tricyclics Screen Ur Phencyclidine Scrn Ur Amphetamine Screen U Methamphetamines Scrn U Benzodiazepines Scrn Urine Cocaine Screen U Cannabinoids Screen Ur Drug Screen Comment Ethyl Alcohol PD Medical Decision Making - ED course Complexity details: reviewed old records, reviewed results, re-evaluated patient, considered differential, d/w patient, d/w family, d/w fashion consultant sales ED course: Patient 68-year-old female presenting to the emergency department chief complaint confusion. Patient is accompanied by who is present at Bedside. Majority history is obtained from as patient appears to be having some intermittent episodes with confusion/memory. Patient was initially at her baseline until 4-5 days ago at which time she underwent dental extraction. 3 days ago began having episodes of confusion, balance issues. Was seen in the emergency department approximately 2 days ago. Identified as having a mild to moderate hyponatremia. Was offered hospitalization for MRI/further workup at t [facility] time however this was declined by family and patient stating that their preference would be to go home. Family reports that they had an outpatient MRI which the states was "normal". Patient is continued to have episodes of confusion and increased tremulousness as well as issues with balance. She is notably tremulous in her upper extremities and generally throughout her body on arrival. She was moderately hypertensive but not tachycardic or diaphoretic. She does appear to have some right upper extremity pronator drift and right versus left increased weakness against resistance. Romberg is not tested for patient's safety. Upon further questioning family does report that she drinks 4 alcoholic beverages daily which she discontinued a few days ago. She is alert and orientated x 4 but has intermittent episodes of confusion and appears to be having gaps in memory. Of note she failed my 3 out of 3 Mini- Mental state exam on immediate and delayed recall. Additionally she had difficult time remembering me despite meeting me twice, initially and at time of reevaluation. Christina was evaluated by nursing staff and she found to have a initial CIWA 19. Lorazepam ordered. That with her waxing waning confusion/delirium and memory issues is highly concerning for Warnicke's/Korsakoff's encephalopathy. Initially IV Thiamine and folic acid are ordered however informed by nursing staff that IV folic acid is not available at this facility. Her labs demonstrated improvement in her hyponatremia with sodium 129 up from 127 from previous. Oral folic acid is ordered and lieu of this. Her head CT is nonacute. Her care is discussed with the hospitalist service who graciously agreed to hospitalize for further evaluation and treatment. Departure - Departure Disposition: 66 [facility] DC/Xfer Clinical Impression: Alcohol withdrawal, Wernickes encephalopathy, Right sided weakness Discharge Date/Time: 12/24/23 01:40
[2023-12-24] MEDS ORDERED: THIAMINE INJ 100 MG, FOLIC ACID INJ 1 MG in SODIUM CHLORIDE 0.9% 1,000 ML IV STA (00:19)
[2023-12-24 00:23] LABS: B. PARAPERTUSSIS- RESP PCR PAN NOT DETECTED; B. PERTUSSIS- RESP PCR PANEL NOT DETECTED; C. PNEUMONIAE- RESP PCR PANEL NOT DETECTED; CORONAVIRUS 229E-RESP PCR NOT DETECTED; CORONAVIRUS HKU1-RESP PCR NOT DETECTED; CORONAVIRUS NL63-RESP PCR NOT DETECTED; CORONAVIRUS OC43-RESP PCR NOT DETECTED; HUMAN METAPNEUMOVIRUS NOT DETECTED; INFLUENZA A- RESP PCR PANEL NOT DETECTED; INFLUENZA B - RESP PCR PANEL NOT DETECTED; M. PNEUMONIAE- RESP PCR PANEL NOT DETECTED; PARAINFLUENZA VIRUS 1 NOT DETECTED; PARAINFLUENZA VIRUS 2 NOT DETECTED; PARAINFLUENZA VIRUS 3 NOT DETECTED; PARAINFLUENZA VIRUS 4 NOT DETECTED; RHINOVIRUS/ENTEROVIRUS NOT DETECTED; RSV- RESP PCR PANEL NOT DETECTED; SARS-CoV-2 -RESP PCR PANEL NOT DETECTED
[2023-12-24] MEDS: LORazepam 2 MG/ML VIAL IVP STA (00:31)
[2023-12-24] MEDS: THIAMINE INJ 100 MG, MAGNESIUM SULFATE 2 GM, MULTIVITAMIN 10 ML, FOLIC ACID INJ 1 MG in... IV STA (00:37)
[2023-12-24] MEDS ORDERED: THIAMINE 100 MG/1 ML 2 ML MDV ONE (00:47)
[2023-12-24] MEDS ORDERED: MAGNESIUM SULFATE 1 GM/2 ML VIAL ONE (00:47)
[2023-12-24] MEDS: THIAMINE INJ 100 MG, FOLIC ACID INJ 1 MG in SODIUM CHLORIDE 0.9% 1,000 ML IV STA (01:01)
[2023-12-24] MEDS ORDERED: SODIUM CHLORIDE FLUSH 0.9% 10 ML SYRINGE IVP PRN (01:03)
[2023-12-24] MEDS ORDERED: ONDANSETRON ODT 4 MG TABLET TL PRN (01:03)
[2023-12-24] MEDS ORDERED: LORazepam 2 MG/ML VIAL IVP PRN (01:08)
--- NOTE | 2023-12-24 01:15 | HISTORY & PHYSICAL EXAMINATION ---
Chief Complaint - Chief Complaint Chief Complaint: AMS History of Present Illness - Admitted From Admitted From:: ER - History Obtained From Records Reviewed: Yes History obtained from: Pt, staff, chart Exam Limitations: Virtual exam, pt's clinical state - History of Present Illness HPI Comment/Other: H&P was conducted via video remotely, using Access Cart. Patient is in [place]. Physician is in [place]. No one is at bedside. Unable to obtain history from pt d/t pt's clinical condition. History obtained from staff, chart. Pt was recently given Ativan in the ER and keeps falling asleep during the interview and has not been able to give much history. 68 yo F with PMH of HTN, HLD, ETOH use presented to the ER for AMS. Pt had R upper 3rd molar extracted and had a bone graft recently, but did not feel that it was healing well and came to the ER on 12/22/23. A/Bs were changed. Pt then returned to the ER on 12/22/23 for AMS, word finding difficulties. CT head, CTA head and MRI head negative. Na was found to be 127. Admission was offered to pt at that time, but she declined admission. She was px'd NaCl tablets. She presented again today with continued AMS, word finding difficulties and with R sided weakness. had reported that pt may also have been having hallucinations. +tremors. Pt has been drinking 4 alcoholic drinks/day x 10 years and decreased this to 2-3x/day in the past 4 days. Pt previously denied CP/SOB/N/V/abdo pain/F/C. In the ER, Na 129, MCV 101, UDS: +Cannabinoids EKG: NSR at 77 bpm, no STTw changes CXR: NAD CT Head: NAD 12/21 CTA Head: NAD 12/21 MRI Brain: NAD Pt was given IVF, Mag 2 gm IV, Thiamine, Ativan 1 mg IV in the ER. History - Past Medical History Cardiovascular: reports: Hypertension, High cholesterol MRSA Hx?: No - Past Surgical History Ortho: reports: Shoulder arthroplasty, Arthroscopic surgery Meds/Allgy - Home Medications Home Medications: Ambulatory Orders Medication Instructions Recorded Confirmed Alendronate [Fosamax] 70 mg PO OAW 12/22/23 12/23/23 Clindamycin [Cleocin] 300 mg PO Q6H 7 Days #28 cap 12/22/23 12/23/23 Gabapentin [Neurontin] 1 cap PO TID 12/22/23 12/23/23 Lisinopril [Zestril] 10 mg PO DAILY 12/22/23 12/23/23 Metoclopramide [Reglan] 10 mg PO Q6H PRN #20 tablet 12/22/23 12/23/23 Ondansetron Odt [Zofran] 4 mg TL Q6H PRN #10 tablet 12/22/23 12/23/23 Simvastatin [Zocor] 40 mg PO QPM 12/22/23 12/23/23 Sodium Chloride [Salt Tab] 1 gm PO DAILY #7 tablet 12/22/23 12/23/23 traMADol [Ultram] 50 - 100 mg PO Q6H PRN #20 tablet 12/22/23 12/23/23 - Allergies Allergies/Adverse Reactions: Allergies Allergy/AdvReac Type Severity Reaction Status Date / Time No Known Drug Allergies Allergy Verified 12/23/23 22:18 Review of Systems - All Other Systems All Other Systems: reports: Reviewed and negative Exam - Vital Signs Reviewed Vital Signs: Yes Vital Signs: Vital Signs x48h Temp Pulse Resp BP Pulse Ox 12/24/23 00:26 36.6 C 81 20 164/95 H 98 12/23/23 23:45 87 17 158/93 H 94 12/23/23 22:55 75 23 141/78 H 94 12/23/23 22:26 81 20 155/87 H 97 12/23/23 22:18 36.8 C 86 16 150/90 H 100 - Physical Exam General Appearance: positive: No acute distress, Other (Drowsy) Eyes Bilateral: positive: EOMI, No scleral icterus ENT: positive: Dry mucous membranes Respiratory: positive: Other (Access cart stethoscope not working; per ER Provider: CTA B/L) Cardiovascular: positive: Other (Access cart stethoscope not working; per ER Provider: RRR, no murmurs) Abdomen: positive: Other (per ER Provider: non-distended, NT, Soft) Extremities: positive: Other (per ER Provider: moves all extrem, no edema) Neurologic/Psychiatric: positive: Other (Drowsy, unable to answer questions or follow commands. Per ER Provider: disoriented to place, time, +R upper extremity pronator drift. Right lower extremity appears weaker in comparison to left when held against gravity. Patient 0 out of 3 were called items on Mini-Mental state exam.) Conclusion/Plan - Problem List (1) AMS (altered mental status) Conclusion/Plan: AMS Speech disturbance R sided weakness -CXR: NAD -CT Head: NAD -12/21 CTA Head: NAD -12/21 MRI Brain: NAD -admit to Med Surg with tele -ASA 81 mg daily -neuro checks -bedside swallow -NPO until bedside swallow done/passed -IVF -Echo ordered -PT/OT/SW consulted -recommend Speech consult, if available (cannot find order for Speech therapy in EMR) -check Lipids, TSH, Hgba1c Alcohol abuse ETOH W/D Tremors -Pt was given IVF, Mag 2 gm IV, Thiamine, Ativan 1 mg IV in the ER. -CIWA protocol with Ativan PRN -MVI, thiamine, Folate -SW consult Marijuana use, presumed -UDS: +Cannabinoids -pt unable to answer questions currently -cessation counseling Hyponatremia -Na 129 -most likely d/t decreased PO intake s/p dental work -IVF -hold home medications: Lisinopril -monitor labs Macrocytosis Na 129, MCV 101 -possibly d/t ETOH -check B12/Folate Recent dental extraction -continue home medications: Clindamycin, Tramadol HTN HLD -continue home medications: Lisinopril, statin -hold home medications: Lisinopril d/t Hyponatremia VTE Prophylaxis: Lovenox Code Status: unable to D/W pt d/t clinical condition; presumed Full Code ~Chanel Clement MD Hospitalist - Lab Results Lab results reviewed: Yes Fish Bones: 12/23/23 22:53 12/23/23 22:53
[2023-12-24] MEDS: FOLIC ACID 1 MG TABLET PO ONE (01:21)
[2023-12-24] MEDS: SODIUM CHLORIDE 0.9% 1,000 ML IV SCH (04:11)
[2023-12-24] MEDS: LORazepam 1 MG TABLET PO PRN (04:22)
[2023-12-24] MEDS: traMADol 50 MG TABLET PO PRN (04:22)
[2023-12-24 06:25] LABS: BASOPHILS % (AUTO) 0.6 %; EOSINOPHILS % (AUTO) 0.8 %; HCT - HEMATOCRIT 31.5 % (37.0-47.0); HGB - HEMOGLOBIN 10.2 g/dL (12.0-16.0); LYMPHOCYTES # (AUTO) 0.8 10^3/uL (1.5-3.5); LYMPHOCYTES % (AUTO) 16.3 %; MEAN CORPUSCULAR HGB CONC 32.4 g/dL (32.0-36.0); MEAN CORPUSCULAR VOLUME 101.9 fL (81.0-99.0); MEAN PLATELET VOLUME 9.5 fL (7.9-10.8); MONOCYTES # (AUTO) 0.5 10^3/uL (0.0-1.0); MONOCYTES % (AUTO) 9.8 %; NEUTROPHILS # (AUTO) 3.7 10^3/uL (1.5-6.6); NEUTROPHILS % (AUTO) 72.3 %; PLT - PLATELET COUNT 262 10^3/uL (130-450); RED BLOOD COUNT 3.09 10^6/uL (4.20-5.40); RED CELL DISTRIBUTION WIDTH 12.8 % (12.0-15.0); WHITE BLOOD COUNT 5.1 x10^3/uL (4.8-10.8)
[2023-12-24 06:57] LABS: ALBUMIN 3.6 g/dL (3.2-5.5); ALBUMIN/GLOBULIN RATIO 1.4 (1.0-2.2); BILIRUBIN,TOTAL 0.6 mg/dL (0.2-1.0); CALCIUM 8.5 mg/dL (8.5-10.3); CREATININE 0.4 mg/dL (0.6-1.3); MAGNESIUM 1.7 mg/dL (1.7-2.3); POTASSIUM 3.9 mmol/L (3.5-4.5); TOTAL PROTEIN 6.2 g/dL (6.4-8.9)
[2023-12-24 07:00] LABS: CHOL/HDL RATIO 2.1 (<4.4); CHOLESTEROL 135 mg/dL; HDL CHOLESTEROL 63 mg/dL; LDL CHOLESTEROL,CALCULATED 61 mg/dL; TRIGLYCERIDES 56 mg/dL (48-352); VLDL CHOLESTEROL 11 mg/dL
[2023-12-24 07:13] LABS: THYROID STIMULATING HORMONE 2.36 uIU/mL (0.34-5.60)
[2023-12-24] MEDS: ALENDRONATE 70 MG TABLET PO SCH (07:41)
[2023-12-24] MEDS: CLINDAMYCIN 150 MG CAPSULE PO SCH ×2 (08:20→14:33)
[2023-12-24] MEDS ORDERED: NON FORMULARY MED (Lisinopril [Zestril] 10 MG Tablet) PO SCH (09:00)
[2023-12-24] MEDS ORDERED: lisinopriL 5 MG TABLET PO SCH (09:00)
[2023-12-24] MEDS: PRENATAL VITAMIN TABLET PO SCH (09:13)
[2023-12-24] MEDS: ASPIRIN CHEW 81 MG TABLET PO SCH (09:13)
[2023-12-24] MEDS: THIAMINE 100 MG TABLET PO SCH (09:14)
[2023-12-24] MEDS: ENOXAPARIN 40 MG/0.4 ML SYRINGE SUBQ SCH (09:14)
[2023-12-24] MEDS: SODIUM CHLORIDE FLUSH 0.9% 10 ML SYRINGE IVP SCH (09:15)
[2023-12-24 09:41] LABS: ESTIMATED AVERAGE GLUCOSE 120 mg/dL (70-100); HEMOGLOBIN A1c% 5.8 % (4.27-6.07)
[2023-12-24] MEDS: ACETAMINOPHEN 325 MG TABLET PO PRN (13:03)
--- NOTE | 2023-12-24 14:18 | PHARMACY PROGRESS NOTE ---
- Best Possible Medication History Admit Date and Time: 12/24/23 0103 Processed by: Pharmacy Medications reviewed in ED?: Yes Medication History completed: Yes Patient Interview: Pt unable to participate Secondary Source(s): Spouse/Significant other (pc network technicianCarter, reviewed with patient's ), Insurance records As the person ultimately responsible for medication therapy, providers are able to order a medication from an existing home medication list in [facility] via the "Reconcile Routine" prior to Confirmation of that medication by cad application support specialist. Such practice is discouraged except when the physician, in their clinical judgment, deems that a medical need exists for a medication without regard to previous use.
--- NOTE | 2023-12-24 15:03 | PROVIDER PROGRESS NOTE ---
Progress Note December 24, 2023 3:01 PM Patient was admitted for altered mental status. She is already been in the emergency room few days previously and treated for antibiotics for an infected tooth. About that time she stopped eating and drinking. says it is Sunday that she stopped (today is Sunday). She is a heavy drinker. Her son describes her as a "functional alcoholic". During the day she remains without alcohol but at night starts to drink pretty heavily until bedtime. She has been able to go without drinking for a week without having withdrawal. Family is very concerned. They want us to make sure that is not something else besides alcohol. They do want us to just pressure off. I explained that it is a combination of mild alcohol withdrawal, hyponatremia, the infection of her tooth and use of antibiotics all getting together to cause this problem. She is confused. She cannot tell me where she is. I gave her the options of grocery store, library, gas station and finally hospital. She smiled and said "yes I am at the hospital". She does not know what town it was. But when I reminded her that she is from [place] and what possible hospital she could be at she was very proud of herself when she said [facility] Tremulous. Falls asleep in midsentence. Last Ativan dose was at approximately 5 AM today. Denies any pain. Except in her shoulder. That is a chronic problem Active Medications Acetaminophen (Acetaminophen 325 Mg Tablet) 650 mg PO Q4HR PRN PRN Reason: Pain 1 to 4, or Fever Last Admin: 12/24/23 13:03 Dose: 650 mg Alendronate Sodium (Alendronate 70 Mg Tablet) 70 mg PO OAW [facility] Last Admin: 12/24/23 07:41 Dose: 70 mg Aspirin (Aspirin Chew 81 Mg Tablet) 81 mg PO DAILY [facility] Last Admin: 12/24/23 09:13 Dose: 81 mg Atorvastatin Calcium (Atorvastatin 10 Mg Tablet) 20 mg PO QPM [facility] Clindamycin HCl (Clindamycin 150 Mg Capsule) 150 mg PO Q6H [facility] Last Admin: 12/24/23 14:33 Dose: 150 mg Enoxaparin Sodium (Enoxaparin 40 Mg/0.4 Ml Syringe) 40 mg SUBQ DAILY [facility] Last Admin: 12/24/23 09:14 Dose: 40 mg Sodium Chloride (Normal Saline 0.9%) 1,000 mls @ 100 mls/hr IV .Q10H [facility] Last Admin: 12/24/23 14:37 Dose: 100 mls/hr Lorazepam (Lorazepam 1 Mg Tablet) 1 mg PO Q1H PRN; Protocol PRN Reason: CIWA > 8 Last Admin: 12/24/23 04:22 Dose: 1 mg Lorazepam (Lorazepam 2 Mg/Ml Vial) 1 mg IVP Q30M PRN; Protocol PRN Reason: CIWA >8 Ondansetron HCl (Ondansetron Odt 4 Mg Tablet) 4 mg TL Q6HR PRN PRN Reason: Nausea / Vomiting Ondansetron HCl (Ondansetron 4 Mg/2 Ml Vial) 4 mg IVP Q6HR PRN PRN Reason: Nausea / Vomiting Multivit/Folic Acid/Iron ( Vitamin Tablet) 1 tab PO DAILYWM [facility] Last Admin: 12/24/23 09:13 Dose: 1 tab Sodium Chloride (Sodium Chloride Flush 0.9% 10 Ml Syringe) 10 ml IVP PRN PRN PRN Reason: NEEDED PER PROVIDER ORDERS Sodium Chloride (Sodium Chloride Flush 0.9% 10 Ml Syringe) 10 ml IVP 0100,0900,1700 [facility] Last Admin: 12/24/23 09:15 Dose: Not Given Thiamine HCl (Thiamine 100 Mg Tablet) 100 mg PO DAILY [facility] Last Admin: 12/24/23 09:14 Dose: 100 mg Tramadol HCl (Tramadol 50 Mg Tablet) 50 mg PO Q6H PRN PRN Reason: PAIN Last Admin: 12/24/23 04:22 Dose: 50 mg Alendronate [Fosamax] 70 mg PO OAW 12/22/23 Lisinopril [Zestril] 10 mg PO DAILY 12/22/23 Simvastatin [Zocor] 40 mg PO QPM 12/22/23 Clindamycin [Cleocin] 150 mg PO Q6H 12/24/23 Gabapentin [Neurontin] 300 mg PO TID 12/24/23 Selected Entries 12/24/23 12/24/23 08:06 11:35 Heart Rate [ 62 59 L Brachial] Respiratory 20 20 Rate Blood Pressure 137/74 H 128/76 [Right Brachial artery] O2 Saturation 93 94 5 foot 3 inch elderly female, looks younger than stated age, 57.5 kg. Sitting up in a chair. and son at the bedside. She falls asleep in midsentence and wait wake up going "what if they miss". Slightly tremulous when she tries to drink her milk. Has absolutely no appetite and they are really worried because she has not eaten since last Sunday. Neck is supple Lungs are clear to auscultation and percussion Regular rate and rhythm without tachycardia Abdomen is soft, nontender, hypoactive bowel sounds, no distention, no fluid wave Extremities without edema Neurologically she is oriented to person and knows the date. Tremors. Hands shake if she tries to bring a glass of milk to her mouth. No hallucinations. No focal deficits. Laboratory Tests 12/24/23 12/24/23 12/24/23 06:03 06:03 06:03 WBC 5.1 Hgb 10.2 L Hct 31.5 L MCV 101.9 H Sodium 131 L Potassium 3.9 Chloride 100 L BUN 17 Creatinine 0.4 L Estimat Average Glucose Hemoglobin A1c % Calcium 8.5 Magnesium 1.7 Total Bilirubin 0.6 AST 14 ALT 13 Ammonia 35.8 Cholesterol LDL Cholesterol, Calc VLDL Cholesterol HDL Cholesterol 12/24/23 12/24/23 06:03 06:03 WBC Hgb Hct MCV Sodium Potassium Chloride BUN Creatinine Estimat Average Glucose 120 H Hemoglobin A1c % 5.8 Calcium Magnesium Total Bilirubin AST ALT Ammonia Cholesterol 135 LDL Cholesterol, Calc 61 VLDL Cholesterol 11 HDL Cholesterol 63 Assessment/plan Altered mental status from multifactorial etiology. 1 most likely alcohol withdrawal, second would be lack of p.o. intake since last Sunday, and continued pulsing pain of the shoulder and jaw from her tooth. She is also hyponatremic. Each of these problems is being addressed. She is on IV fluids. She is already received a banana bag and is now on p.o. thiamine and folate. She is receiving sparing doses of Ativan. Very sleepy with that today. Sodium is responding but coming up from 1271 27-1 31 this morning. Will continue supportive care. I anticipate 2-3 midnights at most. Family is very concerned about how long withdrawal would last. I said that she has never had withdrawal, never had seizures, and I do not think that should last much longer. But if she cannot go from supine to sitting, sitting to standing, ambulating to the toilet and washing her hands and then back in bed she may need some home health or temporary rehab. Her states that they are well aware of all of this through the system. 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
[2023-12-24] MEDS: ONDANSETRON 4 MG/2 ML VIAL IVP PRN (17:20)
[2023-12-24] MEDS: ATORVASTATIN 10 MG TABLET PO SCH (20:37)
[2023-12-24] MEDS ORDERED: NON FORMULARY MED (Simvastatin [Zocor] 40 MG Tablet) PO SCH (21:00)
[2023-12-25 06:01] LABS: BASOPHILS # (AUTO) 0.1 10^3/uL (0.0-0.1); BASOPHILS % (AUTO) 1.1 %; EOSINOPHILS # (AUTO) 0.1 10^3/uL (0.0-0.7); EOSINOPHILS % (AUTO) 1.2 %; HCT - HEMATOCRIT 31.4 % (37.0-47.0); HGB - HEMOGLOBIN 10.5 g/dL (12.0-16.0); LYMPHOCYTES # (AUTO) 1.1 10^3/uL (1.5-3.5); LYMPHOCYTES % (AUTO) 18.9 %; MEAN CORPUSCULAR HEMOGLOBIN 33.5 pg (27.0-31.0); MEAN CORPUSCULAR HGB CONC 33.4 g/dL (32.0-36.0); MEAN CORPUSCULAR VOLUME 100.3 fL (81.0-99.0); MEAN PLATELET VOLUME 9.5 fL (7.9-10.8); MONOCYTES # (AUTO) 0.6 10^3/uL (0.0-1.0); MONOCYTES % (AUTO) 9.6 %; NEUTROPHILS # (AUTO) 3.9 10^3/uL (1.5-6.6); NEUTROPHILS % (AUTO) 68.8 %; PLT - PLATELET COUNT 264 10^3/uL (130-450); RED BLOOD COUNT 3.13 10^6/uL (4.20-5.40); RED CELL DISTRIBUTION WIDTH 12.5 % (12.0-15.0); WHITE BLOOD COUNT 5.7 x10^3/uL (4.8-10.8)
[2023-12-25 06:11] LABS: ALBUMIN 3.6 g/dL (3.2-5.5); ALBUMIN/GLOBULIN RATIO 1.4 (1.0-2.2); BILIRUBIN,TOTAL 0.7 mg/dL (0.2-1.0); CALCIUM 8.6 mg/dL (8.5-10.3); CREATININE 0.4 mg/dL (0.6-1.3); MAGNESIUM 1.7 mg/dL (1.7-2.3); POTASSIUM 3.8 mmol/L (3.5-4.5); TOTAL PROTEIN 6.1 g/dL (6.4-8.9)
--- NOTE | 2023-12-25 11:38 | PROVIDER PROGRESS NOTE ---
Subjective - Prog Note Date Prog Note Date: 12/25/23 Prog Note Time: 11:36 - Subjective Pt reports feeling: Improved Subjective: She says that she feels better than yesterday. And she is alert, cooperative. Yesterday a little bit of twitching, fumbling with her fingers as she rearranged bed sheets, sat up, sat down. Today appears little bit [place]. She has not had any benzodiazepine since approximately 5 AM yesterday morning. However she is still confused. She cannot tell me where she is. She knows she is in [place]. But she cannot name the town. She tells me its December 2023. She thinks she is here because of alcohol poisoning. is at the bedside. All of his questions were answered. Current Medications - Current Medications Current Medications: Active Medications Acetaminophen (Acetaminophen 325 Mg Tablet) 650 mg PO Q4HR PRN PRN Reason: Pain 1 to 4, or Fever Last Admin: 12/25/23 05:00 Dose: 650 mg Alendronate Sodium (Alendronate 70 Mg Tablet) 70 mg PO OAW [facility] Last Admin: 12/24/23 07:41 Dose: 70 mg Aspirin (Aspirin Chew 81 Mg Tablet) 81 mg PO DAILY [facility] Last Admin: 12/25/23 08:48 Dose: 81 mg Atorvastatin Calcium (Atorvastatin 10 Mg Tablet) 20 mg PO QPM [facility] Last Admin: 12/24/23 20:37 Dose: 20 mg Clindamycin HCl (Clindamycin 150 Mg Capsule) 150 mg PO Q6H [facility] Last Admin: 12/25/23 08:48 Dose: 150 mg Enoxaparin Sodium (Enoxaparin 40 Mg/0.4 Ml Syringe) 40 mg SUBQ DAILY [facility] Last Admin: 12/25/23 08:49 Dose: 40 mg Sodium Chloride (Normal Saline 0.9%) 1,000 mls @ 100 mls/hr IV .Q10H [facility] Last Admin: 12/25/23 10:57 Dose: 100 mls/hr Lorazepam (Lorazepam 1 Mg Tablet) 1 mg PO Q1H PRN; Protocol PRN Reason: CIWA > 8 Last Admin: 12/24/23 04:22 Dose: 1 mg Lorazepam (Lorazepam 2 Mg/Ml Vial) 1 mg IVP Q30M PRN; Protocol PRN Reason: CIWA >8 Ondansetron HCl (Ondansetron Odt 4 Mg Tablet) 4 mg TL Q6HR PRN PRN Reason: Nausea / Vomiting Ondansetron HCl (Ondansetron 4 Mg/2 Ml Vial) 4 mg IVP Q6HR PRN PRN Reason: Nausea / Vomiting Last Admin: 12/24/23 17:20 Dose: 4 mg Multivit/Folic Acid/Iron ( Vitamin Tablet) 1 tab PO DAILYWM [facility] Last Admin: 12/25/23 08:48 Dose: 1 tab Sodium Chloride (Sodium Chloride Flush 0.9% 10 Ml Syringe) 10 ml IVP PRN PRN PRN Reason: NEEDED PER PROVIDER ORDERS Sodium Chloride (Sodium Chloride Flush 0.9% 10 Ml Syringe) 10 ml IVP 0100,0900,1700 [facility] Last Admin: 12/25/23 08:49 Dose: 10 ml Thiamine HCl (Thiamine 100 Mg Tablet) 100 mg PO DAILY [facility] Last Admin: 12/25/23 08:48 Dose: 100 mg Tramadol HCl (Tramadol 50 Mg Tablet) 50 mg PO Q6H PRN PRN Reason: PAIN Last Admin: 12/24/23 04:22 Dose: 50 mg Alendronate [Fosamax] 70 mg PO OAW 12/22/23 Lisinopril [Zestril] 10 mg PO DAILY 12/22/23 Simvastatin [Zocor] 40 mg PO QPM 12/22/23 Clindamycin [Cleocin] 150 mg PO Q6H 12/24/23 Gabapentin [Neurontin] 300 mg PO TID 12/24/23 Objective - Vital Signs/Intake & Output Reviewed Vital Signs: Yes Vital Signs: Vital Signs x48h Temp Pulse Resp BP Pulse Ox 12/25/23 10:00 37.1 C 54 L 18 149/75 H 99 12/25/23 08:05 36.9 C 53 L 18 152/86 H 92 12/25/23 04:55 37.1 C 64 16 128/93 H 97 Intake & Output: Intake & Output 12/22/23 12/23/23 12/24/23 12/25/23 23:59 23:59 23:59 23:59 Intake Total 10 3571.2 2650 Output Total 325 Balance 10 3246.2 2650 - Objective General Appearance: positive: No acute distress ( Sitting up in bed.), Alert Eyes Bilateral: positive: PERRL ENT: positive: Pharynx nml, No signs of dehydration Neck: positive: No JVD Respiratory: positive: No respiratory distress. negative: Wheezes, Rales, Rhonchi Cardiovascular: positive: Regular rate & rhythm. negative: Tachycardia Abdomen: positive: Non-tender, No organomegaly, Nml bowel sounds, No distention, Other ( Yesterday had no appetite but was able to take down half an Ensure. last night she took a few bites of dinner. This morning at breakfast another few bites of breakfast. She is a 500 cc water container next to her bedside and I let her know she needs to drink 2 of those a day.) Skin: positive: Warm, Dry, Other ( Psoriatic patches on anterior shins. Upper thighs. She says that the only place they are) Extremities: positive: No pedal edema Neurologic/Psychiatric: positive: CN's nml (2-12), Motor nml, Sensation nml, Disoriented to place, Disoriented to time - Lab Results Fish Bones: 12/25/23 05:21 12/25/23 05:21 Other Labs: Lab Results x24hrs 12/25/23 12/25/23 Range/Units 05:21 05:21 WBC 5.7 (4.8-10.8) x10^3/uL RBC 3.13 L (4.20-5.40) 10^6/uL Hgb 10.5 L (12.0-16.0) g/dL Hct 31.4 L (37.0-47.0) % MCV 100.3 H (81.0-99.0) fL MCH 33.5 H (27.0-31.0) pg MCHC 33.4 (32.0-36.0) g/dL RDW 12.5 (12.0-15.0) % Plt Count 264 (130-450) 10^3/uL MPV 9.5 (7.9-10.8) fL Neut # (Auto) 3.9 (1.5-6.6) 10^3/uL Lymph # (Auto) 1.1 L (1.5-3.5) 10^3/uL [place] # (Auto) 0.6 (0.0-1.0) 10^3/uL Eos # (Auto) 0.1 (0.0-0.7) 10^3/uL Baso # (Auto) 0.1 (0.0-0.1) 10^3/uL Absolute Nucleated RBC 0.00 x10^3/uL Nucleated RBC % 0.0 /100WBC Sodium 131 L (135-145) mmol/L Potassium 3.8 (3.5-4.5) mmol/L Chloride 100 L (101-111) mmol/L Carbon Dioxide 25 (21-32) mmol/L Anion Gap 6.0 (6-13) BUN 14 (6-20) mg/dL Creatinine 0.4 L (0.6-1.3) mg/dL Estimated GFR (MDRD) 158 (>89) Glucose 102 (74-104) mg/dL Calcium 8.6 (8.5-10.3) mg/dL Magnesium 1.7 (1.7-2.3) mg/dL Total Bilirubin 0.7 (0.2-1.0) mg/dL AST 33 (10-42) IU/L ALT 24 (10-60) IU/L Alkaline Phosphatase 57 (42-121) IU/L Total Protein 6.1 L (6.4-8.9) g/dL Albumin 3.6 (3.2-5.5) g/dL Globulin 2.5 (2.1-4.2) g/dL Albumin/Globulin Ratio 1.4 (1.0-2.2) Assessment/Plan - Problem List (1) AMS (altered mental status) Impression: multifactorial due to no p.o. intake since last Sunday (today is December 24), mild alcohol withdrawal, and mild electrolyte abnormality with hypo natremia. Brain MRI December 21 was without acute intracranial abnormality but she had mild paranasal sinus disease. Angiogram was also negative. Head CT without acute changes. She had a repeat head CT December 22 and that was also without acute changes. Plan: She is improving on a daily basis. However, she still disoriented today but more appropriate in conversation. Treatment renetta consisted of IV fluids for hydration, CIWA protocol. She no longer needs CIWA and that will be stopped. Continue IV fluids until taking enough p.o. by herself. Continue salt tablets Qualifiers: Altered mental status type: disorientation Qualified Code(s): R41.0 - Disorientation, unspecified (2) Alcohol withdrawal Impression: she denies hallucinations. Main manifestation is agitation and her demeanor. But she is needed very little benzodiazepines to control her. A little hypertensive today in comparison to yesterday but no tachycardia, no diaphoresis, no hallucinations. She received a banana bag on her first day that was intravenous. She is now on p.o. supplements. I have reassured her that I think she is over the worst of it. That it was very mild. As long as she can get up and walk to the bathroom on her own and feed herself, I would think she be ready to go home. Today she is still not able to do that on her own and I hope that she will be able to do that tomorrow to go home. I explained that she still may remain confused but as long as she is home with him, safe, and could be ambulatory she can go home Qualifiers: Complication of substance-induced condition: uncomplicated Qualified Code(s): F10.930 - Alcohol use, unspecified with withdrawal, uncomplicated (3) Hyponatremia Impression: at her lowest she was 127 on December 21. Then 129. Yesterday she was 131, and 131 today. (4) Tooth infection Impression: on clindamycin since ~12/21. Prior to that she describes tooth surgery with a bone graft repair for which she was on amoxicillin before surgery and after. Today is Day #6 for therapy with clindamycin started 12/21 in ER. Plan on 7 days but we need to verify with dentist, oral surgeon when they want to see her. I spoke to the who tells me Dr. Hernandez is the Dentist but when I called [facility] (David Moser, AMBER) they don't know her. Went back into her room and now they think it's Dr. Silas Angeles. I called [phone]. I texted his office at their request on their answering machine to ask what was the procedure and how long to be on abx.
[2023-12-25] MEDS: lisinopriL 5 MG TABLET PO SCH (18:05)
[2023-12-25] MEDS: GABAPENTIN 300 MG CAPSULE PO SCH (21:17)
[2023-12-26 05:06] LABS: BASOPHILS % (AUTO) 0.6 %; EOSINOPHILS # (AUTO) 0.1 10^3/uL (0.0-0.7); EOSINOPHILS % (AUTO) 1.9 %; HCT - HEMATOCRIT 33.3 % (37.0-47.0); HGB - HEMOGLOBIN 11.1 g/dL (12.0-16.0); LYMPHOCYTES # (AUTO) 1.4 10^3/uL (1.5-3.5); LYMPHOCYTES % (AUTO) 19.9 %; MEAN CORPUSCULAR HEMOGLOBIN 33.1 pg (27.0-31.0); MEAN CORPUSCULAR HGB CONC 33.3 g/dL (32.0-36.0); MEAN CORPUSCULAR VOLUME 99.4 fL (81.0-99.0); MEAN PLATELET VOLUME 9.3 fL (7.9-10.8); MONOCYTES # (AUTO) 0.6 10^3/uL (0.0-1.0); MONOCYTES % (AUTO) 7.9 %; NEUTROPHILS # (AUTO) 4.8 10^3/uL (1.5-6.6); NEUTROPHILS % (AUTO) 69.4 %; PLT - PLATELET COUNT 294 10^3/uL (130-450); RED BLOOD COUNT 3.35 10^6/uL (4.20-5.40); RED CELL DISTRIBUTION WIDTH 12.4 % (12.0-15.0)
[2023-12-26 05:27] LABS: ALBUMIN 3.7 g/dL (3.2-5.5); ALBUMIN/GLOBULIN RATIO 1.5 (1.0-2.2); BILIRUBIN,TOTAL 0.7 mg/dL (0.2-1.0); CALCIUM 8.6 mg/dL (8.5-10.3); CREATININE 0.5 mg/dL (0.6-1.3); MAGNESIUM 1.7 mg/dL (1.7-2.3); POTASSIUM 3.7 mmol/L (3.5-4.5); TOTAL PROTEIN 6.2 g/dL (6.4-8.9)
[2023-12-26] MEDS ORDERED: lisinopriL 5 MG TABLET PO SCH (09:00)
--- NOTE | 2023-12-26 14:17 | Discharge Plan ---
Discharge Plan Problem Reviewed?: Yes Disposition: Home, Self Care Condition: Stable Diet: Cardiac Activity Restrictions: Activity as Tolerated Shower Restrictions: No Driving Restrictions: No Assistance Devices: Walker, Cane, Other (Walking Stick) Weight Bearing: Full Weight Health Concerns: History of Present Illness and hospital course: Lisa Martínez is a 68-year-old woman admitted on December 24, 2023 with a chief complaint of altered mental status. She initially presented to the emergency room on December 22, 2023 for problems related to her recent tooth extraction. She was given antibiotics and sent home. She returned to the emergency room the same day with altered mental status. At that time she underwent a CT scan of the head, CTA and MRI which were all negative. Her sodium was 127 and she was offered admission at that time but declined and went home. She was placed on salt tablets and once again presented to the emergency room on December 24, 2023 with altered mental status. At that time she was having hallucinations and tremor. In the emergency room, sodium was 129 and urine drug screen was positive for cannabinoids. She was admitted and treated for alcohol withdrawal. On hospital day #2 she continues to be treated for alcohol withdrawal with benzodiazepines. On hospital day #3 her clinical condition continued to improve, However, she remained confused. Today she is alert and oriented x 3 and is ambulating without difficulty. She is stable for discharge. Plan of Treatment: 1. Take all medications as prescribed 2. Please follow-up with your primary care physician in 2 to 4 weeks. 3. Please consider stop drinking alcohol. Care Goals: Goal is to return to baseline functioning and good quality of life Assessment: 1. Altered mental status 2. Alcohol withdrawal syndrome Comments plan: Altered mental status is most likely secondary to alcohol withdrawal. Mental status has returned to baseline and patient is stable for discharge. 3. Hyponatremia Comments plan: 1. Recommend taking salt tablets 2 times a day for 3 days and then discontinuing. No Smoking: If you smoke, Please STOP! Call for help. Follow-up with: RASHMI BENAVIDEZ MD [Physician No Access] -
--- NOTE | 2023-12-26 14:17 | DISCHARGE SUMMARY ---
Discharge Summary Admit Date: 12/24/23 Discharge Date: 12/26/23 Discharging Provider: Frederick Patel MD Primary Care Provider: No PCP Code Status: Attempt Resuscitation Condition at Discharge: Stable Discharge Disposition: 01 Home, Self Care - DIAGNOSES Admission Diagnoses: 1. Altered mental status 2. Speech disturbance 3. Right-sided weakness 4. Alcohol dependence Discharge Diagnoses with Status of Each Condition: (1) AMS (altered mental status) (2) Alcohol withdrawal (3) Hyponatremia (4) Tooth infection - HPI History of Present Illness: Lisa Martínez is a 68-year-old woman admitted on December 24, 2023 with a chief complaint of altered mental status. She initially presented to the emergency room on December 22, 2023 for problems related to her recent tooth extraction. She was given antibiotics and sent home. She returned to the emergency room the same day with altered mental status. At that time she underwent a CT scan of the head, CTA and MRI which were all negative. Her sodium was 127 and she was offered admission at that time but declined and went home. She was placed on salt tablets and once again presented to the emergency room on December 24, 2023 with altered mental status. At that time she was having hallucinations and tremor. In the emergency room, sodium was 129 and urine drug screen was positive for cannabinoids. She was admitted and treated for alcohol withdrawal. On hospital day #2 she continues to be treated for alcohol withdrawal with benzodiazepines. On hospital day #3 her clinical condition continued to improve, However, she remained confused. Today she is alert and oriented x 3 and is ambulating without difficulty. She is stable for discharge. - HOSPITAL COURSE Hospital Course: See HPI - ALLERGIES Allergies/Adverse Reactions: Allergies Allergy/AdvReac Type Severity Reaction Status Date / Time No Known Drug Allergies Allergy Verified 12/23/23 22:18 - MEDICATIONS Home Medications: Ambulatory Orders Medication Instructions Recorded Confirmed Alendronate [Fosamax] 70 mg PO OAW 12/22/23 12/23/23 Lisinopril [Zestril] 10 mg PO DAILY 12/22/23 12/23/23 Simvastatin [Zocor] 40 mg PO QPM 12/22/23 12/23/23 Sodium Chloride [Salt Tab] 1 gm PO DAILY #7 tablet 12/22/23 12/23/23 traMADol [Ultram] 50 - 100 mg PO Q6H PRN #20 tablet 12/22/23 12/23/23 Gabapentin [Neurontin] 300 mg PO TID 12/24/23 12/24/23 - PHYSICAL EXAM AT DISCHARGE General Appearance: positive: No acute distress, Alert Eyes Bilateral: positive: No scleral icterus ENT: positive: Pharynx nml Neck: positive: Thyroid nml, No JVD, Trachea midline Respiratory: positive: Breath sounds nml Cardiovascular: positive: Regular rate & rhythm, No murmur Abdomen: positive: Nml bowel sounds, No distention Skin: positive: No rash Extremities: positive: No pedal edema - LABS Result Diagrams: 12/26/23 04:57 12/26/23 04:57 - TIME SPENT Time Spent in Discharge (Minutes): 25
[2023-12-26 16:29] VITALS: BP 163/96; O2SAT 98
== END 2023-12-26 16:36 | disposition home or self-care (01) | DRG 897 ==
LOC: ED 22:13 → MS2 12-24 01:03
PROVIDERS: ADMIT Internal Medicine; ATTEND Internal Medicine
DX: F10.139 Alcohol abuse with withdrawal, unspecified (principal); E51.2 Wernicke's encephalopathy; E87.1 Hypo-osmolality and hyponatremia; R41.82 Altered mental status, unspecified; R29.898 Other symptoms and signs involving the musculoskeletal system; D75.89 Other specified diseases of blood and blood-forming organs; I10 Essential (primary) hypertension; E78.5 Hyperlipidemia, unspecified; K04.7 Periapical abscess without sinus; R47.9 Unspecified speech disturbances
CPT/HCPCS: 36415; 70450; 71045; 80053; 80061; 80143; 80306; 81003; 82140; 82550; 82607; 82746; 82803; 83036; 83605; 83690; 83735; 84300; 84425; 84443; 85025; 85610; 87633; 93005; 93307; 96374; 97116; 97163; 97167; 99285; A9270; G0480; J1650; J2060; J3411; J8499; 80179; 81001; 82077; 83721; 87086